=== PATIENT | female | born 1945 | race Caucasian/White ===

== ENCOUNTER 2016-09-17 09:00 | Day surgery (SDC) | payer MEDICARE, OTHER ==
--- NOTE | ~2016-09-17 | EGD ---
EGD REPORT [facility] [address] [address] NAME: LAKE BERNSTEIN : [birth year] STATUS : REG [facility]#: [id number] AGE: 71 ADM/REG DATE : 09/17/16 MR#: [id number] REPORT SERV DATE: 09/17/16 DICTATED BY: DATE: REPORT STATUS : Draft TRANSCRIBED BY: [facility] DATE: 09/17/16 Endoscopy Center Patient Name: Lake Bernstein Date of : 1945 Attending MD: ANA COOK MD Procedure Date No Time: 09/17/2016 Procedure: Colonoscopy Indications: Iron deficiency anemia Referring MD: Amanda Foss Medicines: Monitored Anesthesia Care Complications: No immediate complications. Procedure: Pre-Anesthesia Assessment: - ASA Grade Assessment: III - A patient with severe systemic disease. After I obtained informed consent, the scope was passed under direct vision. Throughout the procedure, the patient's blood pressure, pulse, and oxygen saturations were monitored continuously. The PCF [id number] was introduced through the anus and advanced to the cecum, identified by appendiceal orifice and ileocecal valve. The colonoscopy was performed without difficulty. The patient tolerated the procedure well. The quality of the bowel preparation was good. Findings: The perianal and digital rectal examinations were normal. A sessile polyp was found in the transverse colon. The polyp was diminutive in size. The polyp was removed with a cold biopsy forceps. Resection and retrieval were complete. A few small-mouthed diverticula were found in the sigmoid colon. No other significant abnormalities were identified in a careful examination of the remainder of the colon. There is no endoscopic evidence of bleeding, inflammation, mass, ulcerations or angioectasia in the entire colon. No additional abnormalities were found on retroflexion. Impression: - One diminutive polyp in the transverse colon. Resected and retrieved. - Diverticulosis in the sigmoid colon. Recommendation: - Patient has a contact number available for emergencies. The signs and symptoms of potential delayed complications were discussed with the patient. Return to normal activities tomorrow. Written discharge instructions were provided to the patient. EGD REPORT [address] [address] NAME: LAKE BERNSTEIN : [birth year] STATUS : REG [facility]#: [id number] AGE: 71 ADM/REG DATE : 09/17/16 MR#: [id number] REPORT SERV DATE: 09/17/16 DICTATED BY: DATE: REPORT STATUS : Draft TRANSCRIBED BY: [employer] DATE: 09/17/16 - High fiber diet. - Discharge patient to home. - Continue present medications. - Await pathology results. - Repeat colonoscopy in 5 years for surveillance if adenomatous, else in 10 years. Procedure Code(s): --- Professional --- 25968, Colonoscopy, flexible, proximal to splenic flexure; with biopsy, single or multiple Diagnosis Code(s): --- Professional --- D12.3, Benign neoplasm of transverse colon K57.30, Diverticulosis of large intestine without perforation or abscess without bleeding D50.9, Iron deficiency anemia, unspecified CPT copyright 2013 [employer]. All rights reserved. The codes documented in this report are preliminary and upon brush maker review may be revised to meet current compliance requirements. ANA COOK MD 09/17/2016 11:08 AM This report has been signed electronically. Number of Addenda: 0 Note Initiated On: 09/17/2016 10:16 AM Scope Withdrawal Time 0 hours 13 minutes 0 seconds [address] [place] [address]
--- NOTE | ~2016-09-17 | EGD ---
EGD REPORT [facility] [address] [address] NAME: LAKE BERNSTEIN : 41 STATUS : REG [facility]#: [id number] AGE: 71 ADM/REG DATE : 09/17/16 MR#: [id number] REPORT SERV DATE: 09/17/16 DICTATED BY: DATE: REPORT STATUS : Draft TRANSCRIBED BY: [facility] DATE: 09/17/16 Endoscopy Center Patient Name: Lake Bernstein Date of : 1945 Attending MD: ANA COOK MD Procedure Date No Time: 09/17/2016 Procedure: Upper GI endoscopy Indications: Iron deficiency anemia secondary to chronic blood loss, Iron deficiency anemia Referring MD: Amanda Foss Medicines: Monitored Anesthesia Care Complications: No immediate complications. Procedure: Pre-Anesthesia Assessment: - ASA Grade Assessment: III - A patient with severe systemic disease. After obtaining informed consent, the endoscope was passed under direct vision. Throughout the procedure, the patient's blood pressure, pulse, and oxygen saturations were monitored continuously. The GIF H190 [id number] was introduced through the mouth, and advanced to the third part of duodenum. The upper GI endoscopy was accomplished without difficulty. The patient tolerated the procedure well. Findings: The examined esophagus was significantly tortuous. Diffuse candidiasis was found in the lower third of the esophagus. Biopsies were taken with a cold forceps for histology. A diverticulum with a large opening was found in the lower third of the esophagus. A 5 cm hiatus hernia was present. The Z-line was regular and was found 32 cm from the incisors. A single small sessile polyp was found in the gastric fundus. The polyp was removed with a cold biopsy forceps. Resection and retrieval were complete. A few small papules (nodules) with were found in the gastric antrum. Biopsies were taken with a cold forceps for histology. No other significant abnormalities were identified in a careful examination of the stomach. There is no endoscopic evidence of ulceration or varices in the entire examined stomach. The examined duodenum was normal. Biopsies were taken with a cold forceps for histology. There is no endoscopic evidence of bleeding, mucosal abnormalities, ulceration or angioectasia in the entire examined duodenum. EGD REPORT [address] [address] NAME: LAKE BERNSTEIN : 41 STATUS : REG [facility] PAT#: [id number] AGE: 71 ADM/REG DATE : 09/17/16 MR#: [id number] REPORT SERV DATE: 09/17/16 DICTATED BY: DATE: REPORT STATUS : Draft TRANSCRIBED BY: [employer] DATE: 09/17/16 The cardia and gastric fundus were normal on retroflexion. No Nicholas erosions noted on careful examination. Impression: - Tortuous esophagus. - Monilial esophagitis. Biopsied. - Diverticulum in the lower third of the esophagus. - Hiatus hernia. - Z-line regular, 32 cm from the incisors. - A single gastric polyp. Resected and retrieved. - A few small papules (nodules) with were found in the stomach. Biopsied. Recommendation: - Patient has a contact number available for emergencies. The signs and symptoms of potential delayed complications were discussed with the patient. Return to normal activities tomorrow. Written discharge instructions were provided to the patient. - Return to previous diet. - Discharge patient to home. - Continue present medications. - Await pathology results. - Diflucan (fluconazole) 100 mg PO daily for 2 weeks. Procedure Code(s): --- Professional --- 93926, Esophagogastroduodenoscopy, flexible, transoral; with biopsy, single or multiple Diagnosis Code(s): --- Professional --- Q39.9, Congenital malformation of esophagus, unspecified B37.81, Candidal esophagitis Q39.6, Congenital diverticulum of esophagus K44.9, Diaphragmatic hernia without obstruction or gangrene K31.7, Polyp of stomach and duodenum K31.9, Disease of stomach and duodenum, unspecified D50.0, Iron deficiency anemia secondary to blood loss (chronic) D50.9, Iron deficiency anemia, unspecified CPT copyright 2013 [employer]. All rights reserved. The codes documented in this report are preliminary and upon marine fuel dock attendant review may be revised to meet current compliance requirements. ANA COOK MD EGD REPORT [facility] [address] [address] NAME: LAKE BERNSTEIN : 41 STATUS : REG [facility]#: [id number] AGE: 71 ADM/REG DATE : 09/17/16 MR#: [id number] REPORT SERV DATE: 09/17/16 DICTATED BY: DATE: REPORT STATUS : Draft TRANSCRIBED BY: [employer] DATE: 09/17/16 09/17/2016 10:56 AM This report has been signed electronically. Number of Addenda: 0 Note Initiated On: 09/17/2016 10:20 AM Scope Withdrawal Time 0 hours 0 minutes [address] [place], [place] [address] [address]
[~2016-09-17 09:00] MED LIST: ACET500CAP PO; ASA5GR PO; COZ50 PO; CRESTOR10 PO; CYANO1000T PO; DEXILANT PO; FLONASE NAS; KAPIDEX60 MG PO; MAG OXIDE250 MG PO; MAG6464 MG PO; MOBIC15 MG PO; NORCO1 TA1 PO; NORV10 PO; NORV5 PO; OS500+D PO; P1 PO; P5 PO; PAXIL40 MG PO; PLAQ200B PO; PROAIR HFA INH; PROCRIT40 IV; REQUIP1 PO; TIMOPTIC0.5 % OP; WELLXL150 PO; XALAT OPH; ZYRTEC ALLGY10 MG PO
[2017-01-06] MEDS ORDERED: ASAB PO (09:43)
== END 2016-09-17 23:59 | disposition home or self-care (01) ==
LOC: DMU 09:00
PROVIDERS: Internal Medicine Gastroenterology
PROC: 0DB78ZX Excision of Stomach, Pylorus, Via Natural or Artificial Opening Endoscopic, Diagnostic (ICD-10-PCS; 2016-09-17)
PROC: 0DB68ZX Excision of Stomach, Via Natural or Artificial Opening Endoscopic, Diagnostic (ICD-10-PCS; 2016-09-17)
PROC: 0DBL8ZX Excision of Transverse Colon, Via Natural or Artificial Opening Endoscopic, Diagnostic (ICD-10-PCS; 2016-09-17)
PROC: 0DB98ZX Excision of Duodenum, Via Natural or Artificial Opening Endoscopic, Diagnostic (ICD-10-PCS; principal; 2016-09-17 12:30)
PROC: 0DB38ZX Excision of Lower Esophagus, Via Natural or Artificial Opening Endoscopic, Diagnostic (ICD-10-PCS; 2016-09-17 12:30)
DX: K63.5 Polyp of colon (principal); K57.30 Diverticulosis of large intestine without perforation or abscess without bleeding; K44.9 Diaphragmatic hernia without obstruction or gangrene; K31.7 Polyp of stomach and duodenum; K20.9 Esophagitis, unspecified; K31.9 Disease of stomach and duodenum, unspecified; I10 Essential (primary) hypertension; D50.0 Iron deficiency anemia secondary to blood loss (chronic); I25.10 Atherosclerotic heart disease of native coronary artery without angina pectoris; F41.9 Anxiety disorder, unspecified; L40.50 Arthropathic psoriasis, unspecified; G89.29 Other chronic pain; M06.9 Rheumatoid arthritis, unspecified; Q39.6 Congenital diverticulum of esophagus; Z95.5 Presence of coronary angioplasty implant and graft; Z88.2 Allergy status to sulfonamides; Z90.49 Acquired absence of other specified parts of digestive tract; Z90.710 Acquired absence of both cervix and uterus; Z98.890 Other specified postprocedural states
CPT/HCPCS: 88305